=== PATIENT | female | born 1955 | race Caucasian/White ===

== ENCOUNTER 2016-05-24 19:23 | Emergency (ER) | payer OTHER | END 2016-05-24 20:06 | disposition home or self-care (01) | LOC: ER 19:23 | DX: J11.1 Influenza due to unidentified influenza virus with other respiratory manifestations (principal); F17.210 Nicotine dependence, cigarettes, uncomplicated; Z79.899 Other long term (current) drug therapy; Z79.82 Long term (current) use of aspirin; Z79.891 Long term (current) use of opiate analgesic; Z88.2 Allergy status to sulfonamides; Z88.8 Allergy status to other drugs, medicaments and biological substances | CPT/HCPCS: 87070; 87400; 87880; 99283 ==